=== PATIENT | female | born 1985 | race Caucasian/White ===

== ENCOUNTER 2017-02-15 19:23 | Inpatient (IN) ==
[~2017-02-15 19:23] MED LIST: Famotidine 20 MG/2 ML VIAL IVP PRN; Lidocaine 1% 20 ML MDV INFILT PRN; Naloxone 0.4 MG/ML INJ IVP PRN; Ondansetron 4 MG/2 ML VIAL IVP PRN; Oxytocin 20 units/ LR 1000 mL 20 UNIT/1,000 ML BAG IVC ONE; Ringers Solution, Lactated 1,000 ML ONE
--- NOTE | 2017-02-15 19:23 | OB/GYN History & Physical ---
Date of Encounter: 02/15/17 Time of Encounter: 19:20 Assessment and Plan (1) 39 weeks gestation of Current visit: Yes Status: Acute Admit to labor and delivery for labor Routine labor management GBS negative Patient may have epidural after labs are complete and seen by RUNNER MAN; consult placed Anticipate vaginal delivery POC per consult with Dr Ojeda. History of Present Illness Chief complaint: Contractions HPI: Ms. Quan is a 31 year old at 39 weeks and 1 day that was seen in the office today for a routine . During her exam she was found to be 4-5cm dilated. She began chrissy 1 hour ago and came to labor and delivery due to the contractions She states positive movement. She denies headache, visual disturbances, epigastric pain, vaginal bleeding, and vaginal discharge. Her course has been normal and without any complications. She is GBS negative, HepB negative, HIV negative, RPR negative, Rubella immune, and Varicella immune. Her blood type is A+ with negative antibodies. Obstetrical History - Pregnancies : 2 Para: 1 Term: 1 : 0 Ab's: 0 Livin Review of System OB All systems PM: reviewed and no additional remarkable complaints except as stated Exam - Constitutional Constitutional: well developed, well nourished, average body habitus - HEENT HEENT: Normocephaly, Mucus Membranes Moist - Neck Neck exam: full ROM - Lungs Respiratory exam: CTAB - Cardiovascular Cardiovascular exam: +S1, +S2 - Abdomen Abdomen: Present: bowel sounds normal, gravid, non tender - Extremities Extremities exam: normal capillary refill, normal inspection, radial pulses palpable and symmetrical - Vagina Vagina: Present: normal moisture - Cervix Dilation: 8 Effacement: 100 Station: 0 - Uterus Uterus exam: Present: normal size, normal contour - Anus/Rectum Anus/Rectum: Present: normal perianal skin Results All other labs normal. - VTE Reasons for not Prescribing Prophylaxis: Treatment not Indicated - Low risk for VTE
[2017-02-15] MEDS ORDERED: Ringers Solution, Lactated 1,000 ML IVC SCH (19:30)
[2017-02-15 19:37] LABS: Basophils % 0.2 %; Eosinophils # 0.1 K/mcL (0.0-0.6); Eosinophils % 0.4 %; Hematocrit 39.7 % (35.3-44.9); Hemoglobin 13.6 g/dL (11.5-15.4); Immature Granulocytes % 0.7 % (0-4); Lymphocytes # 4.2 K/mcL (0.6-4.6); Lymphocytes % 25.6 %; Mean Corpuscular HGB Conc 34.3 g/dL (31.6-35.5); Mean Corpuscular Volume 90.4 fL (83.0-100.0); Mean Platelet Volume 10.3 fL (9.4-12.4); Monocytes # 1.1 K/mcL (0.0-1.3); Monocytes % 6.9 %; Neutrophils # 10.9 K/mcL (1.6-8.9); Platelet Count 201 K/mcL (140-400); Red Blood Count 4.39 M/mcL (3.82-4.97); Red Cell Distribution Width 12.1 % (11.5-14.5); Segmented Neutrophils % 66.2 %
[2017-02-15] MEDS ORDERED: EPHEDrine 50 MG/ML VIAL IVP PRN (19:37)
[2017-02-15] MEDS ORDERED: *HR* FentaNYL (PF) 100 MCG/2 ML VIAL EP ONE (19:37)
[2017-02-15] MEDS ORDERED: Naloxone 0.4 MG/ML INJ IVP PRN (19:37)
[2017-02-15] MEDS ORDERED: Ondansetron 4 MG/2 ML VIAL IVP PRN (19:37)
[2017-02-15] MEDS ORDERED: Bupivacaine-MPF 0.25% 10 ML VIAL EP ONE (19:37)
--- NOTE | 2017-02-15 19:41 | Anesthesia Evaluation PreOp ---
Date of Encounter: 02/15/17 Time of Encounter: 19:39 - Past History Planned Operation: KYLEIGH Cardiac History: Hyperlipidemia Pulmonary History: Denies Any Significant HX PROJECTION CAMERA OPERATOR History: Denies Any Significant HX Other Medical History: GERD Anesthesia History: No Prior Anesthetic Complications, Past Anesthesia ( shoulder surgery 2014 no complication) : No Alcohol Use: none Drug use: none Medications and Allergies Vit/Iron Fumarate/FA [ Tablet] 1 tab PO DAILY 02/15/17 [History ] Allergies No Known Allergies Allergy (Verified 02/15/17 19:36) - Meds/Allergy Pre-op Review Medications Reviewed: Yes Allergies Reviewed: No Beta Blockers on Current Med List: No Anesthesia Results - Labs 02/15/17 19:25 Anesthesia Exam Height: 5'2" Weight: 73.2kg NPO (# of Hours): 4 Pain Scale: 10 Pain Scale Used: Numeric (1 - 10) - HEENT Pupil (Motor): Pupils equal Mallampati: II Teeth: Normal Oral Opening: Greater than 3 - PROJECTION CAMERA OPERATOR PROJECTION CAMERA OPERATOR Motor: Normal RUE, Normal LUE, Normal RLE, Normal LLE, Normal Face PROJECTION CAMERA OPERATOR Sensory: Normal: RUE, LUE, RLE, LLE, Face - Cardiac Rhythm: Regular Murmur: None JVD: No Carotid Bruit: No - Pulmonary Breath Sounds: bilateral Clear Respiratory Effort: Symmetrical Anesthesia Assess/Plan ASA Score: 2 Modified Carol Scale for Level of Consciousness: Cooperative, oriented, and tranquil Anesthetic Plan: Regional Autologous Blood: No Monitoring Plan: Standard Monitors Recovery Plan: Other
[2017-02-15] MEDS ORDERED: *HR* FentaNYL (PF) 100 MCG/2 ML VIAL ONE (19:44)
[2017-02-15] MEDS ORDERED: Epidural Premix (fent/bupiv) 110 ML EP SCH (19:45)
[2017-02-15] MEDS ORDERED: Epidural Premix (fent/bupiv) 0 ML EP ONE (19:45)
[2017-02-15] MEDS ORDERED: Bupivacaine-MPF 0.25% 10 ML VIAL ONE (19:45)
--- NOTE | 2017-02-15 20:09 | Anesthesia Procedures ---
Date of Encounter: 02/15/17 Time of Encounter: 19:50 Procedures: Anesthesia - Epidural/Spinal Patient ID/Chart reviewed: Yes Patient examined: Yes OB Eval: Gestational age: 39 OB Eval: : 2 OB Eval: Hx Para: 1 OB Eval: Dilated at (cm): 9 OB Eval: Contractions: Non-stressed pattern Consent Obtained: Yes Supplemental Oxygen: None/Room Air Site Prep: Aseptic Technique, Sterile prep and drape, Povidone-Iodine 1% Patient position: upright Local Anesthetic: Lidocaine 1% Amount of Local Anesthetic used: 3 Interspace Used: L4-L5 Loss of Resistance ([place]): No Blood: No CSF: Yes Paresthesia: No Spinal Needle Gauge: 25 Spinal Dose: Bupivicaine 0.75% 0.8ml Procedure: Pt checked prior to procedure with determination that epidural would not be beneficial due to time constraints with the labor process. Intrathecal dose bupivicaine 0.75% 0.8ml administered in upright position. VSS and FHT stable throughout. Pt able to move lower extremities after dosing. Pt stated herself to be comfortable. Vitals + FHT's: 1950 BP 117/75 P 72
--- NOTE | 2017-02-15 21:06 | OB/GYN Procedure Note ---
Delivery - Delivery Date: 02/15/17 Provider: Sujatha Gross Intrapartum events: precipitous labor- <3hr Delivery induction: none Delivery augmentation: rupture of membranes Delivery monitor: external FHT, external uterine Anesthesia: other (spinal) Estimated Blood Loss: 150 - (s) A Delivery Date: 02/15/17 Delivery Time: 21:05 Presentation: vertex Position: OA Route of delivery: Gender: Male Viability: Viable Pounds: 7 Ounces: 5 Weight Gram: 3310 kg at 1 minute: 9 at 5 mins: 9 Shoulder Dystocia: not encountered Placenta: spontaneous Cord: 3 umbilical vessels - Repair Episiotomy: none Laceration Description: Perineal - 2nd Degree - Complications Delivery complications: none Delivery comments: Patient AROM for large amount of clear fluid and went to complete with next contraction. Began coached pushing to of vigorous viable male in the OA position. No nuchal cord, no shoulder dystocia, and no meconium encountered. Infant placed on maternal abdomen. Cord clamped and cut after cessation of pulsation. Apgars 9 and 9 at 1 and 5 minutes of age. Placenta delivered spontaneously and appears grossly intact with 3 vessel cord. Uterus firm after delivery of placenta with light bleeding. Upon inspection a second degree laceration is noted. Second degree was repaired in the usual fashion with 3-0 vicryl. Infant and mother are stable in skin to skin and after delivery. Dr Ojeda notified of delivery. - Disposition Mom disposition: stable in LDR Scheller disposition: stable in LDR
[2017-02-15] MEDS ORDERED: Oxytocin 20 units/ LR 1000 mL 20 UNIT/1,000 ML BAG IVC ONE ×2 (22:42→23:47)
[2017-02-15] MEDS ORDERED: Acetaminophen 325 MG TABLET PO PRN (23:47)
[2017-02-15] MEDS ORDERED: Benzocaine/Menthol 56 GM AEROSOL SPRAY TP PRN (23:47)
[2017-02-15] MEDS ORDERED: Oxytocin 20 units/ LR 1000 mL 20 UNIT/1,000 ML BAG IVC SCH (23:47)
[2017-02-15] MEDS ORDERED: Ibuprofen 600 MG TABLET PO PRN (23:47)
[2017-02-16] MEDS ORDERED: NON-FORMULARY MEDICATION 1 EACH EACH (Prenatal Vit/Iron Fumarate/Fa [Prenatal Tablet] 1 TA PO SCH (09:00)
--- NOTE | 2017-02-16 09:09 | OB/GYN Progress Note ---
Date of Encounter: 02/16/17 Time of Encounter: 09:08 - Assessment and Plan (1) Vaginal delivery Current Visit: Yes Status: Acute Routine PP care. Patient plans to discharge in the morning. Subjective - Subjective Principal diagnosis: s/p Patient reports: appetite normal, voiding normally, pain well controlled, ambulating normally : doing well, nursing well Objective - Latest Vital Signs Latest vital signs: Vital Signs Temp Pulse Pulse Resp BP Pulse Ox 02/16/17 01:30 98.0 F 64 65 16 102/62 99 02/16/17 00:30 98.1 F 69 65 16 108/67 99 02/15/17 23:30 98.1 F 65 65 16 110/71 99 Intake and Output 02/15/17 02/16/17 02/16/17 23:59 07:59 15:59 Output Total 150 / 150 2400 / 2400 Balance -150 / -150 -2400 / -2400 Output: Urine 2400 / 2400 Estimated Blood Loss 150 / 150 Other: Weight 76.8 kg 76.7 kg Patient Weight 02/16/17 23:59 Weight 76.7 kg - Exam Lungs: bilateral: normal Chest: Normal S1, Normal S2 Extremities: Present: normal Abdomen: Present: normal appearance, soft Uterus: Present: normal, firm Uterus Position: At Umbilicus - Labs Labs: Laboratory Results - last 24 hr 02/15/17 19:25 WBC 16.5 H RBC 4.39 Hgb 13.6 Hct 39.7 MCV 90.4 MCH 31.0 MCHC 34.3 RDW 12.1 Plt Count 201 MPV 10.3 Immature Gran % 0.7 Seg Neutrophils % 66.2 Lymphocytes % 25.6 Monocytes % 6.9 Eosinophils % 0.4 Basophils % 0.2 Neutrophils # 10.9 H Lymphocytes # 4.2 Monocytes # 1.1 Eosinophils # 0.1 Basophils # 0.0
[2017-02-16] MEDS: Prenatal Vit/FA 1 EACH TABLET PO SCH (10:42)
[2017-02-17] MEDS: Prenatal Vit/FA 1 EACH TABLET PO SCH (07:58)
[2017-02-17 08:48] VITALS: BP 105/68
--- NOTE | 2017-02-17 11:50 | Discharge Summary ---
Date of Encounter: 02/17/17 Time of Encounter: 11:50 - Discharge Diagnosis (1) Vaginal delivery Priority: Primary Status: Acute Comments: Doing well without c/o. Good pain control. - Discharge Medications Prescriptions: Ibuprofen [Motrin] 600 mg PO Q6HR PRN #40 tab PRN Reason: Mild To Moderate Pain Home Medications: Vit/Iron Fumarate/FA [ Tablet] 1 tab PO DAILY 02/15/17 [History ] Ibuprofen [Motrin] 600 mg PO Q6HR PRN #40 tab 02/17/17 [Rx] Allergies/Adverse Reactions: Allergies No Known Allergies Allergy (Verified 02/15/17 19:36) Data Procedures and tests throughout hospitalization: Laboratory Tests 02/15/17 19:25 WBC 16.5 H RBC 4.39 Hgb 13.6 Hct 39.7 MCV 90.4 MCH 31.0 MCHC 34.3 RDW 12.1 Plt Count 201 MPV 10.3 Immature Gran % 0.7 Seg Neutrophils % 66.2 Lymphocytes % 25.6 Monocytes % 6.9 Eosinophils % 0.4 Basophils % 0.2 Neutrophils # 10.9 H Lymphocytes # 4.2 Monocytes # 1.1 Eosinophils # 0.1 Basophils # 0.0 - Impressions Doing well without c/o. Appropriate lochia Date of admission: 02/15/17 19:23 Consults: 02/15/17 23:47 Consult to Timing Machine Operator [CONS] Routine Comment: Vaginal delivery, consult needed - Patient Status Disposition: Home, Self-Care Condition: Good Functional capacity at discharge: independent ambulation Overall status at discharge: patient is progressing back to baseline - Discharge Instructions Follow Up With: Lorraine Matthews DO [Partnered Physician] - Additional Instructions: Perineal Care: Always wipe front to back Change your pad frequently Use your gabo bottle with warm water and spray front to back Do not douche, use tampons, have sexual intercourse or put anything in your vagina for 4-6 weeks after delivery Bleeding: Vaginal bleeding can last up to 6 weeks Your menstrual period may return as early as 6 weeks after you are discharged from the hospital Nikolas/Stitches Care: Vaginal Delivery Vaginal stitches will dissolve within 4-6 weeks Follow perineal care instructions Care Stitches will dissolve on their own If you have nikolas, they will need to be removed in the doctors office within 5-7 days. You may shower with stitches or nikolas Drip plan or soapy water over the incision to clean. Pat dry gently with a clean towel. Make sure you completely dry under the skin folds DO NOT USE powders, lotions, rubbing alcohol or hydrogen peroxide on or around your incision. This will slow your wound healing It is normal to have soreness, burning, tingling, itchiness and/or numbness as your incision heals Activity: Rest frequently Do not lift anything heavier than a gallon of milk, up to 10-15 pounds No driving for 1-2 weeks for Vaginal delivery No driving for 2-4 weeks for delivery Take stairs slowly, one at a time Gradually increase your daily activity until you are back to your normal routine Do not exercise until you have had your follow-up appointment Bathing: Take a shower daily Do not take a tub bath for the first 4 weeks Diet: Drink plenty of water and fruit juices Eat a well-balanced diet with foods high in fiber such as fruits and vegetables Depression: Your hormones have a major impact on your feelings and emotions. Hormone imbalance may cause changes in your mood, creating unfamiliar thoughts and actions. Support is available to help you understand and cope with these feelings and mood changes. If you answer yes to any of the following questions, please call your health care provider: Are you having trouble sleeping? Are you feeling isolated? Have you lost your appetite? Are you having thoughts of hurting yourself or others? WARNING SIGNS: Heavy bleeding from the vagina (blood is bright red and soaks a sanitary pad in an hour or less.) Passing a blood clot larger than your fist Discharge from the vagina that has a bad odor Temperature over 100.4 F, or if you feel cold and have chills An episiotomy site that is warm, swollen or oozing. Use a mirror if needed Urination (pee) that is painful, very red and swollen or leaking fluid An incision that is painful, very red and swollen and leaking fluid An incision that has come open Breasts that are painful or full with flu like symptoms Redness, warmth or swelling in the calf of your leg Trouble breathing, dizziness, visual disturbance or faintness *Notify your health care provider immediately or go to the nearest Emergency Room if you experience any of the above signs.* To contact the nurses station 24 hours a day, For non-urgent, routine questions, please call the office at - Diet and Activity Activity: increase activity as tolerated Diet: advance to your usual diet Hospital Course MEDICAL LIBRARY ASSISTANT Time Attestation: Total time spent providing and/or coordinating discharge services: Exam - Constitutional Vitals: Temp Pulse Resp BP Pulse Ox 98.1 F 62 16 105/68 97 02/17/17 08:47 02/17/17 08:47 02/17/17 08:47 02/17/17 08:47 02/17/17 08:47 General appearance IM: A&O X 3 - Respiratory Respiratory exam: Present: CTAB - Cardiovascular Cardiovascular exam IM: Present: RRR - GI/Abdominal GI/Abdominal exam IM: normal bowel sounds - Extremities Exam Extremities exam IM: Present: full ROM - Neurological Exam Neurological exam: oriented X3 - VTE Reasons for not Prescribing Prophylaxis: Treatment not Indicated - Low risk for VTE
== END 2017-02-17 13:00 | disposition home or self-care (01) | DRG 775 ==
LOC: 1NENULAB → 1NENUOBS 23:46
PROVIDERS: ADMIT Advanced Practice Midwife; ATTEND Advanced Practice Midwife